=== PATIENT | female | born 1965 | race Caucasian/White ===

== ENCOUNTER 2018-07-20 13:10 | Outpatient (CLI) | payer OTHER ==
--- NOTE | 2018-07-20 14:25 | MMO ---
BILATERAL MAMMOGRAMS: HISTORY: Screening mammography. COMPARISON: Multiple previous exams back to 10/24/2009. FINDINGS: Heterogeneously dense fibroglandular tissue and benign-appearing calcifications. Multiple partially obscured oval and rounded isodense nodules of varying size throughout each breast are stable and cons istent with a benign process. No dominant mass or suspicious calcifications. The study was evaluate d with the assistance of computer-aided detection. IMPRESSION: BI-RADS category 2. Benign findings. Suggest routine followup. BIRADS 2: Benign Finding(s) Routine annual screening mammography (for women over age 40) POS: [facility]
== END 2018-07-20 13:11 | disposition home or self-care (01) ==
LOC: SCSMAMMO 13:10
PROVIDERS: ATTEND Family Medicine
DX: Z12.31 Encounter for screening mammogram for malignant neoplasm of breast (principal)
CPT/HCPCS: 77067